=== PATIENT | female | born 1970 | race Two or more races ===

== ENCOUNTER 2025-03-08 09:00 | Day surgery (SDC) | payer OTHER ==
[2025-03-02 12:35] VITALS: BP 114/79
[~2025-03-08] VITALS: Ht 162.6 cm; Wt 65.8 kg
[~2025-03-08 09:00] MED LIST: CIPRO500 MG PO; CITALOPRAM HBR20 MG PO; CLIMARA1 EAC1 TD
[2025-03-08] MEDS ORDERED: MACROBID 100 M100 MG PO (12:58)
[2025-03-08] MEDS ORDERED: TRAM1TAB98 PO (12:58)
[2025-03-08] MEDS ORDERED: EPINEphrine 10 ML DISP.SYRIN IV ONE (13:30)
[2025-03-08] MEDS ORDERED: CEFAZOLIN SODIUM 1,000 MG VIAL IV ONE (13:30)
[2025-03-08] MEDS ORDERED: LIDOCAINE HCL 1%/EPINEPHRINE 20ML VIAL IJ ONE (13:30)
== END 2025-03-08 16:20 | disposition home or self-care (01) ==
LOC: CIR.AMB 09:00
PROVIDERS: ATTEND Obstetrics & Gynecology Gynecology
DX: N39.3 Stress incontinence (female) (male) (principal)
CPT/HCPCS: 57288; C1771